=== PATIENT | female | born 1995 | race Caucasian/White ===

== ENCOUNTER 2017-01-13 13:01 | Emergency (ER) | payer OTHER ==
[2017-01-13 13:47] LABS: HEMOGLOBIN 12.2 gm/dl (12.3-15.3); RED BLOOD COUNT 4.22 M/UL (4.00-5.10); WHITE BLOOD COUNT 9.1 K/UL (4.5-11.0)
[2017-01-13 13:59] LABS: BUN/CREATININE RATIO 18 (0-10)
== END 2017-01-13 17:16 | disposition home or self-care (01) ==
LOC: ER1 13:01
PROVIDERS: Emergency Medicine
DX: O20.0 Threatened abortion (principal); O99.331 Smoking (tobacco) complicating pregnancy, first trimester; F17.200 Nicotine dependence, unspecified, uncomplicated; Z3A.11 11 weeks gestation of pregnancy
CPT/HCPCS: 36415; 76815; 80053; 81001; 83690; 84702; 84703; 85025; 87086; 96360; 99284

== ENCOUNTER → 2017-01-21 | Outpatient (CLI) | payer OTHER | LOC: KOH-I 09:00 | DX: O99.89 Other specified diseases and conditions complicating pregnancy, childbirth and the puerperium (principal); Z3A.13 13 weeks gestation of pregnancy | CPT/HCPCS: 76705 ==